=== PATIENT | female | born 1955 | race Caucasian/White ===

== ENCOUNTER 2017-12-05 22:31 | Inpatient (IN) | payer BC ==
[~2017-12-05] VITALS: Ht 152.4 cm; Wt 71.3 kg
[2017-12-05 23:24] LABS: Basophils # (auto) 0 uL; Eosinophils # (auto) 0 uL; Lymphocytes # (auto) 0.1 uL; Monocytes # (auto) 0 uL; Neutrophils # (auto) 0.3 uL
[2017-12-05 23:26] LABS: Eosinophils % (auto) 0.5 % (0.0-7.0); Lymphocytes % (auto) 30.9 % (10.0-50.0); Mean Corpuscular Hemoglobin 34.5 pg (28.0-32.0); Mean Corpuscular Hgb Conc. 34.4 g/dL (32.0-36.0); Mean Corpuscular Volume 100.3 fL (80.0-100.0); Neutrophils % (auto) 64.6 % (37.0-80.0); Nucleated Red Blood Cells % 0.2 %; Platelet Count (auto) 50 10^3/uL (140-450); Red Blood Cells 2.89 10^6/uL (4.0-5.20); Red Cell Distribution Width 16.3 % (11.8-14.3)
[2017-12-05 23:32] LABS: Alanine Aminotransferase 18 U/L (13-56); Albumin 3.4 g/dL (3.4-5.0); Alkaline Phosphatase 82 U/L (45-117); Anion Gap 14 (5-15); Aspartate Aminotransferase 21 U/L (15-37); BUN/Creatinine Ratio 20.6; Blood Urea Nitrogen 21 mg/dL (7-18); Calcium 8.2 mg/dL (8.5-10.1); Carbon Dioxide 21 mmol/L (21-32); Chloride 100 mmol/L (98-107); GFR African American 71 mL/min; GFR Non-African American 58 mL/min; Glucose 160 mg/dL (74-106); Sodium 135 mmol/L (136-145); Total Protein 6.6 g/dL (6.4-8.2)
[2017-12-05] MEDS ORDERED: SODIUM CHLORIDE 0.9% 1,000 ML IVB ONE (23:48)
[2017-12-05 23:51] LABS: White Blood Cell 0.4 10^3/uL (4.4-10.8)
[2017-12-06] MEDS ORDERED: ONDANSETRON HCL 4 MG/2 ML VIAL IV ONE
[2017-12-06] MEDS ORDERED: MORPHINE SULFATE 4 MG/ML SYR/VIAL IV ONE
[2017-12-06 00:26] LABS: INR 0.91 (0.9-1.15); Partial Thromboplastin Time 23.1 sec (22.64-33.71); Prothrombin Time 9.9 sec (9.37-12.3)
[2017-12-06] MEDS ORDERED: MEPERIDINE HCL (25 MG/ML) 1ML VIAL IV ONE ×2 (01:15→03:45)
[2017-12-06] MEDS ORDERED: VANCOMYCIN 1GM/250ML 250 ML IV ONE (03:00)
[2017-12-06] MEDS ORDERED: PIPERACILLIN-TAZOB 3.375GM 100 ML IV ONE (03:00)
[2017-12-06] MEDS ORDERED: TEMAZEPAM 15 MG CAP PO PRN (04:45)
[2017-12-06] MEDS ORDERED: LORazepam 0.5 MG TAB PO PRN (04:45)
[2017-12-06] MEDS: MORPHINE SULFATE 4 MG/ML SYR/VIAL IV PRN ×4 (07:55→22:20)
[2017-12-06] MEDS: ONDANSETRON HCL 4 MG/2 ML VIAL IV PRN ×2 (07:55→22:19)
[2017-12-06 09:00] VITALS: BP 128/77
[2017-12-06] MEDS ORDERED: LISI2.5T47 PO (09:11)
[2017-12-06] MEDS ORDERED: FERR-20 PO (09:11)
[2017-12-06] MEDS ORDERED: POLY33504 PO (09:11)
[2017-12-06] MEDS ORDERED: HCTZ25T PO (09:11)
[2017-12-06 13:00] VITALS: BP 138/75
[2017-12-06] MEDS ORDERED: LEVOFLOXACIN 500 MG TAB PO ONE (13:45)
[2017-12-06] MEDS ORDERED: FILGRASTIM 480 MCG INJ VIAL SC ONE (13:45)
[2017-12-06] MEDS ORDERED: POTASSIUM CHL 10% (20 MEQ/15ML) 15ml ORAL SOLN PO ONE (14:00)
[2017-12-06] MEDS: HYDROcodone-ACET 5/325MG TAB PO PRN ×2 (15:19→20:10)
[2017-12-06 17:00] VITALS: BP 135/78
[2017-12-06 21:49] VITALS: BP 123/73
[2017-12-07] MEDS: MORPHINE SULFATE 4 MG/ML SYR/VIAL IV PRN ×5 (04:03→22:00)
[2017-12-07] MEDS: ONDANSETRON HCL 4 MG/2 ML VIAL IV PRN ×4 (04:04→22:16)
[2017-12-07 05:36] VITALS: BP 126/71
[2017-12-07 05:48] LABS: Hemoglobin 9.1 g/dL (12.2-16.2); Platelet Count (auto) 26 10^3/uL (140-450); Red Blood Cells 2.64 10^6/uL (4.0-5.20)
[2017-12-07 05:52] LABS: Hematocrit 26.8 % (36.0-46.0); Mean Corpuscular Hemoglobin 34.7 pg (28.0-32.0); Mean Corpuscular Hgb Conc. 34.1 g/dL (32.0-36.0); Mean Corpuscular Volume 101.7 fL (80.0-100.0)
[2017-12-07 06:06] LABS: White Blood Cell 0.3 10^3/uL (4.4-10.8)
[2017-12-07 06:09] LABS: Albumin 2.8 g/dL (3.4-5.0); BUN/Creatinine Ratio 14.7; Bilirubin, Total 0.8 mg/dL (0.2-1.0); Calcium 7.4 mg/dL (8.5-10.1); Potassium 4.2 mmol/L (3.5-5.1); Total Protein 6.1 g/dL (6.4-8.2)
[2017-12-07 06:15] LABS: Band Neutrophils % (manual) 0; Eosinophils % (manual) 0 (0-7)
[2017-12-07 06:16] LABS: Basophils % (manual) 0 (0.0-2.0); Blast Cells 0; Metamyelocytes % 0; Myelocytes % 0; Promyelocytes % 0; Reactive Lymphocytes 0
[2017-12-07 06:42] LABS: Lymphocytes % (manual) 54 (10.0-50.0); Monocytes % (manual) 4 (0-12)
[2017-12-07 09:00] VITALS: BP 110/54
[2017-12-07] MEDS: LEVOFLOXACIN 500 MG TAB PO SCH (09:27)
[2017-12-07 11:32] LABS: INR 0.93 (0.9-1.15); Partial Thromboplastin Time 29.9 sec (22.64-33.71); Prothrombin Time 10.1 sec (9.37-12.3)
[2017-12-07 12:25] VITALS: BP 117/71
[2017-12-07] MEDS: FILGRASTIM 480 MCG INJ VIAL SC SCH (13:32)
[2017-12-07] MEDS ORDERED: MORPHINE SULFATE 4 MG/ML SYR/VIAL IM ONE (14:30)
[2017-12-07] MEDS ORDERED: MORPHINE SULFATE 4 MG/ML SYR/VIAL IV ONE (15:30)
[2017-12-07 17:00] VITALS: BP 102/70
[2017-12-07] MEDS: ACETAMINOPHEN 500 MG TAB PO PRN ×2 (21:41→21:59)
[2017-12-07 21:53] VITALS: BP 102/69
[2017-12-08 00:38] LABS: Urine Bacteria NONE SEEN /hpf (None Seen); Urine Blood 1+ /uL (Negative); Urine Specific Gravity 1.014 (1.001-1.035); Urine WBC 2 /hpf (0 - 5)
[2017-12-08] MEDS: ONDANSETRON HCL 4 MG/2 ML VIAL IV PRN ×4 (04:17→20:41)
[2017-12-08] MEDS: MORPHINE SULFATE 4 MG/ML SYR/VIAL IV PRN ×4 (04:18→20:42)
[2017-12-08 05:18] VITALS: BP 101/58
[2017-12-08 06:41] LABS: Hematocrit 28.4 % (36.0-46.0); Hemoglobin 9.3 g/dL (12.2-16.2); Mean Corpuscular Hemoglobin 33.6 pg (28.0-32.0); Mean Corpuscular Hgb Conc. 32.6 g/dL (32.0-36.0); Mean Corpuscular Volume 102.9 fL (80.0-100.0); Red Blood Cells 2.76 10^6/uL (4.0-5.20); Red Cell Distribution Width 15.6 % (11.8-14.3)
[2017-12-08 06:49] LABS: Albumin 2.4 g/dL (3.4-5.0); Calcium 7.5 mg/dL (8.5-10.1); Potassium 4.4 mmol/L (3.5-5.1)
[2017-12-08 06:58] LABS: BUN/Creatinine Ratio 16.9; Bilirubin, Total 0.7 mg/dL (0.2-1.0); Total Protein 5.9 g/dL (6.4-8.2)
[2017-12-08 07:04] LABS: Platelet Count (auto) 18 10^3/uL (140-450)
[2017-12-08 07:05] LABS: White Blood Cell 0.3 10^3/uL (4.4-10.8)
[2017-12-08 07:11] LABS: Band Neutrophils % (manual) 0; Basophils % (manual) 0 (0.0-2.0); Metamyelocytes % 0; Monocytes % (manual) 0 (0-12); Myelocytes % 0
[2017-12-08 07:12] LABS: Blast Cells 0; Promyelocytes % 0; Reactive Lymphocytes 0
[2017-12-08 08:38] LABS: Eosinophils % (manual) 4 (0-7); Lymphocytes % (manual) 72 (10.0-50.0)
[2017-12-08 09:00] VITALS: BP 86/59
[2017-12-08] MEDS: LEVOFLOXACIN 500 MG TAB PO SCH (10:12)
[2017-12-08] MEDS: FILGRASTIM 480 MCG INJ VIAL SC SCH (11:04)
[2017-12-08] MEDS: HYDROcodone-ACET 5/325MG TAB PO PRN ×2 (11:25→15:58)
[2017-12-08 14:14] VITALS: BP 110/62
[2017-12-08 16:16] VITALS: BP 90/40
[2017-12-08] MEDS ORDERED: BISACODYL 10 MG RECT SUPP PR ONE (16:30)
[2017-12-08] MEDS ORDERED: LACTULOSE 20Gm/30ML SOLN PO PRN (16:30)
[2017-12-08 21:38] VITALS: BP 126/72
[2017-12-09] VITALS (8 sets, daily range): BP systolic 100–126; BP diastolic 59–80
[2017-12-09] MEDS: MORPHINE SULFATE 4 MG/ML SYR/VIAL IV PRN ×4 (02:07→21:54)
[2017-12-09] MEDS: ONDANSETRON HCL 4 MG/2 ML VIAL IV PRN ×2 (02:08→21:54)
[2017-12-09 07:08] LABS: Red Cell Distribution Width 15.6 % (11.8-14.3)
[2017-12-09 07:11] LABS: Hematocrit 26.5 % (36.0-46.0); Hemoglobin 9.2 g/dL (12.2-16.2); Mean Corpuscular Hemoglobin 34.9 pg (28.0-32.0); Mean Corpuscular Hgb Conc. 34.7 g/dL (32.0-36.0); Mean Corpuscular Volume 100.6 fL (80.0-100.0); Red Blood Cells 2.64 10^6/uL (4.0-5.20)
[2017-12-09 07:17] LABS: Platelet Count (auto) 76 10^3/uL (140-450)
[2017-12-09 07:18] LABS: White Blood Cell 0.4 10^3/uL (4.4-10.8)
[2017-12-09 07:21] LABS: Basophils % (manual) 0 (0.0-2.0); Blast Cells 0; Metamyelocytes % 0; Myelocytes % 0; Promyelocytes % 0; Reactive Lymphocytes 0
[2017-12-09 07:28] LABS: Albumin 2.6 g/dL (3.4-5.0); BUN/Creatinine Ratio 17.7; Bilirubin, Total 0.6 mg/dL (0.2-1.0); Calcium 7.4 mg/dL (8.5-10.1); Total Protein 6.4 g/dL (6.4-8.2)
[2017-12-09 07:47] LABS: Band Neutrophils % (manual) 0; Eosinophils % (manual) 1 (0-7); Lymphocytes % (manual) 53 (10.0-50.0); Monocytes % (manual) 23 (0-12)
[2017-12-09] MEDS: HYDROcodone-ACET 5/325MG TAB PO PRN ×3 (08:43→15:29)
[2017-12-09] MEDS: LEVOFLOXACIN 500 MG TAB PO SCH (09:54)
[2017-12-09] MEDS: FILGRASTIM 480 MCG INJ VIAL SC SCH (09:54)
[2017-12-10] MEDS: MORPHINE SULFATE 4 MG/ML SYR/VIAL IV PRN ×2 (04:15→13:46)
[2017-12-10] MEDS: ONDANSETRON HCL 4 MG/2 ML VIAL IV PRN ×2 (04:15→13:46)
[2017-12-10 05:00] VITALS: BP 92/60
[2017-12-10 06:14] LABS: Hematocrit 22.9 % (36.0-46.0); Mean Corpuscular Hemoglobin 34.5 pg (28.0-32.0); Mean Corpuscular Hgb Conc. 34.8 g/dL (32.0-36.0); Mean Corpuscular Volume 99.2 fL (80.0-100.0); Platelet Count (auto) 101 10^3/uL (140-450); Red Blood Cells 2.31 10^6/uL (4.0-5.20); Red Cell Distribution Width 15.7 % (11.8-14.3)
[2017-12-10 07:08] LABS: White Blood Cell 1.4 10^3/uL (4.4-10.8)
[2017-12-10 07:11] LABS: Band Neutrophils % (manual) 0; Basophils % (manual) 0 (0.0-2.0); Blast Cells 0; Eosinophils % (manual) 0 (0-7); Metamyelocytes % 0; Myelocytes % 0; Promyelocytes % 0; Reactive Lymphocytes 0
[2017-12-10 09:00] VITALS: BP 115/59
[2017-12-10 10:15] LABS: Lymphocytes % (manual) 29 (10.0-50.0); Monocytes % (manual) 20 (0-12)
[2017-12-10] MEDS: FILGRASTIM 480 MCG INJ VIAL SC SCH (12:02)
[2017-12-10] MEDS: LEVOFLOXACIN 500 MG TAB PO SCH (12:02)
[2017-12-10 13:00] VITALS: BP 121/62
[2017-12-10] MEDS: HYDROcodone-ACET 5/325MG TAB PO PRN (16:22)
== END 2017-12-10 16:23 | disposition short-term general hospital (02) | DRG 543 ==
LOC: ER 22:36 → TELE 22:37 → TELE-EAST 12-06 08:57
PROVIDERS: ADMIT Nurse Practitioner Family; ATTEND Family Medicine
PROC: 30233R1 Transfusion of Nonautologous Platelets into Peripheral Vein, Percutaneous Approach (ICD-10-PCS; principal; 2017-12-08)
DX: M84.459A Pathological fracture, hip, unspecified, initial encounter for fracture (principal); D61.818 Other pancytopenia; C76.3 Malignant neoplasm of pelvis; S00.83XA Contusion of other part of head, initial encounter; S70.02XA Contusion of left hip, initial encounter; E87.6 Hypokalemia; I10 Essential (primary) hypertension; M89.9 Disorder of bone, unspecified; R04.0 Epistaxis; S00.93XA Contusion of unspecified part of head, initial encounter; W18.39XA Other fall on same level, initial encounter; Z92.21 Personal history of antineoplastic chemotherapy; Z92.3 Personal history of irradiation; Y93.89 Activity, other specified; Y92.89 Other specified places as the place of occurrence of the external cause
CPT/HCPCS: 36415; 70450; 70486; 71045; 72192; 73502; 73560; 80053; 81001; 83735; 83880; 84484; 85007; 85025; 85027; 85610; 85730; 86850; 86900; 86901; 93005; 96361; 96374; 96375; 96376; 97163; J1442; J2405